=== PATIENT | male | born 1940 | race Caucasian/White ===

== ENCOUNTER → 2016-10-14 | Outpatient (CLI) | payer MEDICARE, OTHER ==
--- NOTE | 2016-10-17 07:50 | CT ---
EXAM DESCRIPTION: Chest w/Contrast CLINICAL HISTORY: PULMONARY NODULE F/U COMPARISON: April 04, 2016 TECHNIQUE: Postcontrast CT images of the chest are obtained. This exam was performed according to our departmental dose-optimization program, which includes automated exposure control, adjustment of the mA and/or kV according to patient size and/or use of iterative reconstruction technique . FINDINGS: Heart and great vessels show mild calcific atherosclerotic disease. No pathologically enlarged mediastinal, hilar, or axillary lymphadenopathy is seen. No significant pleural or pericardial effusion is seen. Visualized upper abdomen shows multiple low-attenuation lesions in the liver that are too small to adequately characterize, but likely represent cysts. These are stable from previous. Calcifications in the gallbladder again suggest cholelithiasis versus gallbladder wall calcifications. Partly visualized solid lesion of the posterior mid pole left kidney measures 1.6 x 2.5 cm relatively stable from previous exam with fat stranding extending to the posterior abdominal wall suggesting possible previous ablation therapy. Correlate clinically. Lungs are mildly hyperinflated. Mild centrilobular emphysematous changes are seen. The subtle less than 3 mm noncalcified nodule in the right middle lobe on image 40-41 is stable to less prominent than previous exam. The more pleural-based 3 mm noncalcified pulmonary nodule in the right middle lobe on image 41 days stable. There is a new area of interstitial thickening in the periphery of the right lung base. Osseous structures show no aggressive bony lesions. Moderate bridging marginal endplate osteophytes over multiple level suggesting diffuse idiopathic skeletal hyperostosis. IMPRESSION: Relatively stable appearance to tiny noncalcified pulmonary nodules in the right middle lobe. Follow-up imaging in one year to document long-term stability is recommended. Interstitial thickening in the right lung base could represent atelectasis versus scarring. Partly visualized left renal lesion. This could represent posttherapeutic changes from ablation therapy of solid renal mass. Correlate with patient history. Cholelithiasis Electronically signed by: August Stinson MD 10/17/2016 7:50 AM CDT
== END | disposition home or self-care (01) ==
LOC: CT 08:41
PROVIDERS: ATTEND Family Medicine
DX: R91.1 Solitary pulmonary nodule (principal)

== ENCOUNTER 2016-11-24 05:52 | Day surgery (SDC) | payer MEDICARE, OTHER ==
[2016-11-24] MEDS ORDERED: LACTATED RINGERS 1,000 ML ONE (06:10)
[2016-11-24] MEDS ORDERED: PROPOFOL 200 MG/20 ML VIAL IV ONE (07:00)
[2016-11-24] MEDS ORDERED: MIDAZOLAM INJ 5 MG/5 ML VIAL ONE (07:00)
[2016-11-24] MEDS ORDERED: LIDOCAINE 1% 10 ML VIAL INJ ONE (07:00)
[2016-11-24] MEDS ORDERED: fentaNYL CITRATE INJ 50 MCG/ML AMP ONE (07:00)
[2016-11-24 08:17] VITALS: BP 119/60; TEMP 97.2; O2SAT 96
--- NOTE | 2016-11-24 08:42 | OP ---
DATE OF PROCEDURE: 11/24/16 PREOPERATIVE DIAGNOSIS: 1. History of rectal cancer in 2016, status post transrectal resection of colon cancer. 2. History of diverticulosis. POSTOPERATIVE DIAGNOSIS: 1. Small lesion at the anastomosis in the rectum. 2. A few small scattered diverticula noted in the sigmoid colon. 3. Normal cecum, ascending colon, transverse colon, and descending colon. PROCEDURE: 1. Colonoscopy with biopsy of the lesion at the rectal anastomosis. SURGEON: Douglas Hansen MD. ANESTHESIA: MAC by Timmy Pete CRNA. ESTIMATED BLOOD LOSS: Less than 2 mL. COMPLICATIONS: None apparent. TECHNIQUE: After signed consent was obtained from the patient, the patient was taken to the Endoscopy Suite and put in the left lateral decubitus position. After adequate IV sedation was obtained, a digital rectal exam was performed which revealed decreased sphincter tone and no intraluminal masses. The prostate was not palpable (status post TURP). The colonoscope was then passed with good visualization all the way through the colon. The bowel prep was excellent. The cecum was identified by the presence of ileocecal valve and usual landmarks. The scope was then withdrawn slowly over the next 10 minutes and a good look at the entire colonic mucosa was obtained. The anastomosis line was identified very, very low in the rectum. There was a small, scabbed lesion on the suture line. There was some attached mucus to it. The mucus was irrigated off and the lesion was then bleeding very slowly. The lesion was biopsied with cold biopsy forceps and there was about 1 mL of blood loss which quickly stopped. The specimen was retrieved and sent for pathology. The scope was removed. The patient was transported to the outpatient area in good condition. I will have him followup with me in two weeks for path report. #[id number] [facility]
== END 2016-11-24 08:35 | disposition home or self-care (01) ==
LOC: AMB 05:52
PROVIDERS: ATTEND Family Medicine
DX: Z12.11 Encounter for screening for malignant neoplasm of colon (principal); K57.30 Diverticulosis of large intestine without perforation or abscess without bleeding; K62.9 Disease of anus and rectum, unspecified; N40.0 Benign prostatic hyperplasia without lower urinary tract symptoms; Z85.048 Personal history of other malignant neoplasm of rectum, rectosigmoid junction, and anus; Z79.899 Other long term (current) drug therapy
CPT/HCPCS: 00810; 45380; 88305; J2250; J3010; J3490; J7120

== ENCOUNTER 2017-01-18 09:54 | Inpatient (IN) | payer MEDICARE, OTHER ==
[~2017-01-18 09:54] MED LIST: DEXAMETHASONE INJ 10 MG/ML VIAL ONE; GLYCOPYRROLATE 0.2 MG/ML VIAL ONE; LIDOCAINE 1% 10 ML VIAL INJ ONE; PROPOFOL 200 MG/20 ML VIAL IV ONE; ePHEDrine SULF 50 MG/ML ONE; raNITIdine HCL INJ 25 MG/ML VIAL ONE
--- NOTE | 2017-01-18 10:26 | ED.PDOC ---
History of Present Illness - General Chief Complaint: Abdominal Pain Stated Complaint: abdominal pain Time Seen by Provider: 01/18/17 10:26 Information Source: patient Exam Limitations: no limitations - History of Present Illness Initial Comments: Chan Dawson 76 y/o male stated that he had stabbing abdominal pain at about 0230 hour today intermittent radiating to back and got worse .Had regular bm did not eat breakfast no appetite no dysuria Abdominal Pain Onset Location: generalized abdomen Pain Radiation: back Quality: moderate, intermittent, stabbing Timing/Duration: 7-24 hours Improving Factors: nothing Worsening Factors: nothing Associated Symptoms: other - see hpi Review of Systems - Review of Systems Constitutional: States: no symptoms reported EENTM: States: no symptoms reported Respiratory: States: no symptoms reported Cardiology: States: no symptoms reported Gastrointestinal/Abdominal: States: see HPI Genitourinary: States: no symptoms reported Musculoskeletal: States: no symptoms reported Skin: States: no symptoms reported Neurological: States: no symptoms reported Past Medical History (General) - Patient Medical History Hx Seizures: No Hx Stroke: No Hx Dementia: No Hx Asthma: No Hx of COPD: No Hx Cardiac Disorders: No Hx Congestive Heart Failure: No Hx Pacemaker: No Hx Hypertension: No Hx Thyroid Disease: No Hx Diabetes: No Hx Gastroesophageal Reflux: No Hx Renal Disease: No Hx Cancer: Yes - colon, kidney Hx of HIV: No Hx MRSA: No Surgical History: appendectomy, other - kidney surgery left ,colon resection - Vaccination History Hx Tetanus, Diphtheria Vaccination: Yes Hx Influenza Vaccination: Yes Hx Pneumococcal Vaccination: Yes - Social History Hx Tobacco Use: No Hx Alcohol Use: No Hx Substance Use: No Hx Substance Use Treatment: No Hx Depression: No Hx Physical Abuse: No Hx Emotional Abuse: No Family Medical History - Family History Mother Family History: Unknown Living Status: Hx Family Cancer: Yes - ovarian Hx Family;Other: ALS-dad Father Family History: Unknown Living Status: Physical Exam - Physical Exam General Appearance: Alert, Comfortable, No apparent distress Eyes, Ears, Nose, Throat Exam: PERRL/EOMI, normal ENT inspection, pharynx normal Neck: non-tender, full range of motion, supple Respiratory: chest non-tender, lungs clear, normal breath sounds Cardiovascular/Chest: normal peripheral pulses, regular rate, rhythm, no murmur Peripheral Pulses: No deficit Gastrointestinal/Abdominal: normal bowel sounds, soft, no organomegaly, tenderness - epigastrium no peritoneal signs Back Exam: normal inspection, no CVA tenderness Extremity: normal range of motion, non-tender Neurologic: no motor/sensory deficits, alert, normal mood/affect, oriented x 3 Progress - Progress Progress: 01/18/17 11:55 Vital Signs - 8 hr 01/18/17 09:54 Temperature 98.0 F Pulse Rate [ 64 pulse ox] Respiratory 16 Rate Blood Pressure 147/85 [Right Arm] O2 Sat by Pulse 98 Oximetry Laboratory Tests 01/18/17 01/18/17 10:35 10:35 WBC 10.7 RBC 4.71 Hgb 14.8 Hct 43.9 MCV 93.2 MCH 31.4 H MCHC 33.7 RDW 13.7 Plt Count 169 MPV 9.5 Absolute Neuts (auto) 10.00 H Absolute Lymphs (auto) 0.40 L Absolute Monos (auto) 0.30 Absolute Eos (auto) 0.00 Absolute Basos (auto) 0.00 Neutrophils % 93.5 H Lymphocytes % 3.6 L Monocytes % 2.8 Eosinophils % 0.0 L Basophils % 0.1 Sodium 141 Potassium 4.4 Chloride 108 Carbon Dioxide 24 Anion Gap 13.4 BUN 18 Creatinine 0.93 BUN/Creatinine Ratio 19.4 Random Glucose 168 H Serum Osmolality 287.0 Calcium 9.4 Total Bilirubin 0.6 AST 20 ALT 16 Alkaline Phosphatase 72 Serum Total Protein 7.3 Albumin 4.6 Globulin 2.7 Albumin/Globulin Ratio 1.7 Lipase 21 L - EKG/XRAY/CT EKG: Sinus, no ST T wave changes Comments: heart rate -62 XRAY: chest - no acute abnormalities Xray Comments: abd.sono-gallbladder wall thickening and pricholecystic fluid sugg of jigar Departure - Departure Clinical Impression: Acute calculous cholecystitis Abdominal pain Qualifiers: Abdominal location: generalized Qualified Code(s): R10.84 - Generalized abdominal pain Time of Disposition: 12:36 Disposition: Admit Patient Condition: Fair Departure Forms: Patient Portal Self Enrollment Instructions: DI for Abdominal Pain-Adult Referrals: Douglas Hansen MD [Primary Care Provider] - 1-2 Weeks Home Medications: Ambulatory Orders NK [NK] 11/11/15 Decision To Admit - Decistion To Admit Decision to Admit Reason: Admit from ER Decision to Admit Date: 01/18/17 - D/W Dr. Staton -surgeon/Marty Simon - ANP/ hospitalist Decision to Admit Time: 12:36
--- NOTE | 2017-01-18 11:04 | RAD ---
Study: Single Frontal View of the Chest. Indication:pain Comparison: None. IMPRESSION: Heart size normal. Lungs clear. Degenerative changes of the spine noted. Electronically signed by: Gaston Tate MD 01/18/2017 11:02 AM CDT
--- NOTE | 2017-01-18 11:35 | US ---
EXAM DESCRIPTION: Abdomen,Complete CLINICAL HISTORY: pain COMPARISON: None available. FINDINGS: Aorta: Nonaneurysmal. IVC: Visualized portions normal. Ascites: None. Pancreas: Partially obscured by overlying bowel gas but visualized portions normal. Liver: No mass, hepatomegaly or biliary duct dilation. Physiologic flow is noted in the main portal vein. Gallbladder/Common Duct: There are several small gallstones in the gallbladder neck measuring up to 7 or 8 mm diameter. Gallbladder sludge is also present. The gallbladder wall is thickened, measuring up to 7 mm diameter, with a small amount of pericholecystic fluid. The common bile duct is not dilated, measuring 5 mm diameter near the nancy hepatis. Right Kidney: No stones, hydronephrosis, atrophy or mass. Spleen: No splenomegaly or mass. Left Kidney: No stones, hydronephrosis, atrophy or mass. The teller coordinator's notes are not available at the time of this dictation and no information concerning absence or presence of a sonographic Crane sign is available. IMPRESSION: Cholelithiasis with gallbladder wall thickening and a tiny amount of pericholecystic fluid suggestive of cholecystitis. No biliary duct dilation. Limited evaluation of the pancreas due to superimposed bowel gas. Electronically signed by: Aris Biswas MD 01/18/2017 11:33 AM CDT Workstation: [id number]
[2017-01-18] MEDS ORDERED: MORPHINE SULFATE INJ 10 MG/ML VIAL IV ONE (11:43)
[2017-01-18] MEDS ORDERED: PROMETHAZINE HCL INJ 25 MG/ML VIAL IM ONE (11:43)
[2017-01-18] MEDS ORDERED: ONDANSETRON INJ 4 MG/2 ML VIAL IV PRN (13:09)
[2017-01-18] MEDS ORDERED: SODIUM CHLORIDE 0.9% (FLUSH) 10 ML SYG IV PRN (13:09)
[2017-01-18] MEDS ORDERED: MORPHINE SULFATE INJ 10 MG/ML VIAL IV PRN (13:09)
[2017-01-18] MEDS ORDERED: levoFLOXacin 500MG IV 500 MG in PREMIX BAG 1 BAG IVPB ONE (13:13)
[2017-01-18] MEDS ORDERED: levoFLOXacin 500MG IV 100 ML IVPB ONE (13:17)
[2017-01-18] MEDS ORDERED: IV SET AND CAP CHANGE INJ INJ SCH (13:30)
--- NOTE | 2017-01-18 13:32 | HP ---
SUPERVISING PHYSICIAN: Douglas Hansen M.D. CHIEF COMPLAINT: Epigastric abdominal pain. HISTORY OF PRESENT ILLNESS: Ms. Dawson is a 76 year-old male patient that presented to the Emergency Department today complaining that he had stabbing abdominal pain that started around 2:30 this morning. It has been intermittent and radiating to the back, and has continued to worsen. He has had some nausea and vomiting. Says he has not had any significant bowel habit changes, but has no appetite. Laboratory studies show that he a normal white count with a left shift. Chemistries were within normal limits with lipase being normal. Urinalysis showed 100 glucose, small amount of blood, otherwise within normal limits. Radiographic studies included an abdominal ultrasound and per radiology interpretation there was note of cholelithiasis with gallbladder wall thickening and tiny amount of pericholecystic fluid suggestive of cholecystitis but no biliary duct dilation. Also of note was limited evaluation of pancreas due to superimposed bowel gas. On admission, the patient was afebrile with blood pressure 147/85, satting 98% on room air. Dr. Lr, E. R. physician, consulted Dr. Staton in the emergency department in regards to the findings for acute cholecystitis. Dr. Staton requested the patient be admitted to the hospitalist service in anticipation of a cholecystectomy. The patient was given morphine and Phenergan in the Emergency Department and admitted to the Medical/Surgical floor in stable condition. PAST MEDICAL HISTORY: 1. Benign prostatic hypertrophy. 2. Osteoarthritis. 3. Colon cancer diagnosed in 2016 with a transrectal resection. PAST SURGICAL HISTORY: 1. Appendectomy. 2. Laparoscopic ablation of left renal mass in 2013. 3. Transrectal resection of colon cancer for a adenocarcinoma. HOME MEDICATIONS: 1. Cialis 5 mg 1 tablet daily for BPH. ALLERGIES: NO KNOWN DRUG ALLERGIES. FAMILY HISTORY: Father from amyotrophic lateral sclerosis. 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 He is retired having served in the [employer]. He is and lives in [place]. He does have a history of smoking for about 15 years of 1 pack a day and quit approximately 42 years ago. He does note he drinks on a rare occasion. He denies any illicit drug use. REVIEW OF SYSTEMS: CONSTITUTIONAL: Denies any fevers, chills or general malaise. HEENT: No headaches, vision changes, nasal congestion. RESPIRATORY: Denies any shortness of breath, exertional dyspnea or cough. CARDIOVASCULAR: Denies any chest pains, palpitations, syncopal or near syncopal episodes. GASTROINTESTINAL: As noted in the history of present illness. GENITOURINARY: Denies any dysuria, hematuria or polyuria. Does have history of benign prostatic hypertrophy currently taking Cialis. NEUROLOGIC: Denies any headaches, syncopal episodes, presyncopal episodes or any other neurological deficits. PHYSICAL EXAMINATION: VITAL SIGNS: Temperature 98.0, pulse 64, blood pressure 147/85, respirations 16 , satting 98% on room air. Admission weight is 75.8 kg. GENERAL: The patient was alert and oriented. Appears to be in no acute distress at time of exam. HEENT: Tympanic membranes are clear bilaterally. Oropharynx is pink and moist without any lesions. NECK: There was no jugular venous distention. Neck was supple, full range of motion, non-tender. CHEST: Lungs were clear to auscultation bilaterally without any rhonchi, wheezing or rales. CARDIOVASCULAR: Regular rate and rhythm without appreciable murmurs, gallops, or rubs. ABDOMEN: Positive bowel sounds. Soft. Tenderness noted over the epigastrium with some mild tenderness on the right upper quadrant on deep palpation. BACK: Atraumatic. Normal inspection with no CVA tenderness. EXTREMITIES: No clubbing, cyanosis or edema. NEUROLOGIC: He was alert and oriented times three. Facial features were symmetrical. Extraocular movements are within normal limits. Cranial nerves II -XII are grossly intact. LABORATORY: CBC showed normal white count at 10.7, hemoglobin 14.8, hematocrit 43.9, platelet count 169,000. Differential did show a left shift. Chemistries showed normal electrolytes with potassium 4.4, BUN 18, creatinine 0.9, glucose 168. Liver functions showed to be within normal limits. Lipase was 21. Urinalysis showed 100 of glucose with small amount of blood, otherwise within normal limits. RADIOLOGY: Abdominal ultrasound per radiology interpretation there was note of cholelithiasis with gallbladder wall thickening and tiny amount of pericholecystic fluid suggestive of cholecystitis but no biliary duct dilation was noted. There was note of limited evaluation of the pancreas due to superimposed bowel gas. Chest x-ray per radiology interpretation single view chest showed normal heart size. Lungs were clear. EKG showed normal sinus rhythm with no ST or T wave changes noted. ASSESSMENT: 1. Acute abdominal pain with noted CT findings suggestive of acute cholecystitis. 2. Benign prostatic hypertrophy on Cialis. 3. History of colon cancer with adenocarcinoma in 2016 with transrectal resection. 4. History of left renal mass removed with a laparoscopic ablation in 2013. 5. Osteoarthritis. PLAN: The patient will be admitted to the hospital for further evaluation and treatment with concerns for developing acute cholecystitis with consultation with Dr. Staton and anticipation of possibly needing a cholecystectomy. He will be continued to have preoperative workup completed. He will be NPO and started on Levaquin IV every 24 hours. He will be provided pain management with morphine and antiemetics with Phenergan and Zofran as needed. He was given Phenergan in the Emergency Department to include 50 mg IM as well as 10 mg of morphine. Will anticipate length of stay to be 2 to 3 days pending findings on consultation with Dr. Staton. Until then, will continue to monitor the patient and treat appropriately. #[id number] [facility]
--- NOTE | 2017-01-18 18:11 | CONS ---
DATE OF CONSULTATION: 01/18/17 REFERRING PHYSICIAN: Hospitalist Service SUPERVISING PHYSICIAN: Douglas Hansen M.D. HISTORY OF PRESENT ILLNESS: The patient is a 76 year-old male that presented to the Emergency Room with severe right upper quadrant pain that eventually radiated to his back. He has had previous episodes of like illness but not as bad. He has had nausea and some vomiting. He has had no change in his bowel habits. Denies blood per rectum or melenic stools. He has no history of hepatitis or jaundice. He is, after medication, much more comfortable when he is examined by me. PAST MEDICAL HISTORY: 1. Benign prostatic hypertrophy. 2. Osteoarthritis. PAST SURGICAL HISTORY: 1. Status post transanal excision of a carcinoma of the colon. 2. Status post ablation of left renal mass. 3. Status post appendectomy. CURRENT MEDICATIONS: 1. Cialis. ALLERGIES: NO KNOWN DRUG ALLERGIES. FAMILY HISTORY: Positive for amyotrophic lateral sclerosis. SOCIAL HISTORY: The patient is . He lives here in [place]. He is a retired senior agricultural assistant spraying agriculture. He also served in the [employer]. He smoked and quit approximately 40 years ago. He drinks rarely. There is no history of drug use. REVIEW OF SYSTEMS: Unremarkable but he denies shortness of breath, chest pain, productive cough. Denies dysuria, hematuria or polyuria. Denies headaches, change in neurologic symptoms. PHYSICAL EXAMINATION: VITAL SIGNS: Currently afebrile and normotensive. GENERAL: The patient is awake, alert and cooperative. He is in mild distress. HEENT: Reveals the sclera to be nonicteric. Mucous membranes are moist. NECK: Without adenopathy. BACK: Without CVA tenderness. CHEST: Reveals equal breath sounds bilaterally. HEART: Regular rate and rhythm. Heart sounds are somewhat deep or distant. ABDOMEN: Soft. There is right upper quadrant and epigastric tenderness without mass or guarding. RECTAL: Examination is deferred. EXTREMITIES: Without clubbing, cyanosis or edema. LABORATORY: Reveals a normal EKG. White count 10,000, hemoglobin 14, platelet count 169,000. There was a slight left shift. Electrolytes show potassium 4.4 , creatinine 0.9. Liver functions are within normal limits. Lipase 21. Urinalysis showed a small amount of sugar and blood. Chest x-ray is noted to be clear. Ultrasound reveals cholelithiasis with wall thickening, pericholecystic fluid and normal ducts. IMPRESSION: 1. Acute abdominal pain consistent with symptomatic cholelithiasis and biliary colic. 2. History of benign prostatic hypertrophy. 3. History of rectal cancer. 4. History of renal lesion. 5. Osteoarthritis. PLAN: After the risks, benefits, and alternatives to laparoscopic cholecystectomy were discussed with the patient in the presence of his , he wishes to proceed with cholecystectomy in the morning and this will be scheduled. We will continue him on his Levaquin. He will be NPO at midnight and have the routine Hibiclens shower, etc. #[id number] [facility]
[2017-01-18] MEDS: SODIUM CHLORIDE 0.9% (FLUSH) 10 ML SYG IV SCH (20:42)
[2017-01-18] MEDS ORDERED: CHLORHEXIDINE GLUCONATE 4 % 15 ML UD TOP ONE (21:59)
[2017-01-19] MEDS: SODIUM CHLORIDE 0.9% (FLUSH) 10 ML SYG IV SCH ×2 (07:44→21:13)
[2017-01-19] MEDS ORDERED: HEPARIN SODIUM (PORCINE) 10,000 UNITS/ML VIAL ONE (08:17)
[2017-01-19] MEDS ORDERED: BUPIVACAINE 0.25% W/EPI 50 ML VIAL INJ ONE (08:17)
[2017-01-19] MEDS ORDERED: fentaNYL CITRATE INJ 50 MCG/ML AMP ONE (08:36)
[2017-01-19] MEDS ORDERED: ROCURONIUM BROMIDE 10 MG/ML VIAL ONE (08:36)
[2017-01-19] MEDS ORDERED: SUGAMMADEX SODIUM 200 MG/2 ML VIAL IV ONE (08:36)
[2017-01-19] MEDS ORDERED: ELECTROLYTE-A 1,000 ML IVS ONE ×2 (08:45→10:06)
[2017-01-19] MEDS ORDERED: HYDROmorphone HCL INJ 2 MG/ML VIAL ONE (09:36)
[2017-01-19] MEDS ORDERED: GLUCAGON INJ 1 MG VIAL ONE (09:47)
[2017-01-19] MEDS ORDERED: ONDANSETRON INJ 4 MG/2 ML VIAL IV PRN (10:36)
[2017-01-19] MEDS ORDERED: HYDROcodone 5MG/APAP 325MG 1 EA TAB PO PRN (10:36)
[2017-01-19] MEDS ORDERED: HYDROmorphone HCL INJ 2 MG/ML VIAL IV PRN (10:36)
[2017-01-19] MEDS ORDERED: levoFLOXacin 500MG IV 500 MG in PREMIX BAG 1 BAG IVPB SCH (11:00)
[2017-01-19] MEDS ORDERED: PANTOPRAZOLE SODIUM IV 40 MG VIAL IV SCH (11:00)
--- NOTE | 2017-01-19 11:06 | OP ---
DATE OF PROCEDURE: 01/19/17 PREOPERATIVE DIAGNOSIS: 1. Symptomatic cholelithiasis. 2. Biliary colic. POSTOPERATIVE DIAGNOSIS: 1. Symptomatic cholelithiasis. 2. Biliary colic. 3. Subacute cholecystitis. 4. Cholesterolosis. 5. Nonobstructing choledocholithiasis PROCEDURE: 1. Laparoscopic cholecystectomy with intraoperative cholangiography using fluoroscopy. SURGEON: Arley Staton MD. SECURITY DIRECTOR: None. ANESTHESIA: Local infiltration of 0.25% Marcaine with epinephrine and general endotracheal anesthesia. INDICATION: The patient is a 76-year-old male who presented with at least his second episode of right upper quadrant pain with radiation to the back, probably associated with fatty meals. He was noted to have normal liver function tests. The patient was brought to the Surgical Suite today for cholecystectomy with cholangiography after the risks, benefits and alternatives to the procedure were discussed and accepted. FINDINGS: The patient was noted to have an edematous, thickened gallbladder wall with multiple adhesions from the omentum. The patient had a very small cystic duct. Intraoperative cholangiography revealed a single stone in the distal common bile duct which intermittently allowed flow of contrast and drainage of the bile duct into the duodenum. There were no strictures identified. It was a long cystic duct. DESCRIPTION OF PROCEDURE: After adequate general endotracheal anesthesia was obtained, the patient was prepped and draped in the usual sterile manner. Surgical time-out was taken. An infraumbilical incision was made, first with infiltration with anesthesia, then with a sharp knife. Dissection was carried down through the skin and subcutaneous tissue to the midline fascia. Traction sutures were placed on either side of the midline. A small incision was made in the midline fascia and the peritoneum was opened bluntly. Hermelindo trocar was introduced under direct vision into the abdominal cavity and fixed in place with 20 mL balloon. CO2 was then insufflated until a pressure of 12 mmHg was reached and the abdomen was tympanitic in all four quadrants. When this was done, the laparoscope was introduced. The abdomen was inspected with the previously noted findings. The patient was then placed in reverse Trendelenburg position, turned to the left side. The upper abdominal ports were placed under direct vision. The gallbladder was grasped and elevated and adhesions to the gallbladder were taken down using blunt dissection and electrocautery. When the neck of the gallbladder was identified, it was retracted laterally. The triangle of Calot was then explored without difficulty. The cystic duct and cystic artery identified. The cystic duct was hemoclipped once proximally. The cystic artery was hemoclipped twice proximally and once distally. A small incision was made in the cystic duct. The cholangiogram catheter was introduced through a separate stab wound in the right upper quadrant, introduced into the cystic duct and clipped in place. Cholangiograms were then taken which showed initially no flow into the duodenum , then with a good flow, but with a distal stone. After attempting to flush this with saline and noting it was still in the lower duct, 1 mg of Glucagon was given. Again, a cholangiogram was taken which again showed the stone in the distal duct although it was not impacted at that time. Again, it was attempted to flush with both saline and contrast, but it continued to be in the distal common bile duct with contrast in the duodenum, so at this point, the cystic duct catheter was removed. The cystic duct was hemoclipped three times distally and divided between the hemoclips. The cystic artery was divided. The gallbladder was then dissected free from the gallbladder bed of the liver without difficulty. It was removed from the infraumbilical port site in the usual manner under direct vision. When this was done, the subhepatic space and subphrenic space were irrigated copiously with saline. The effluent was noted to be clear. There was a small amount of bleeding from the gallbladder bed of the liver. The nancy hepatis was inspected and no bleeding or bile leak was identified. The upper abdominal ports were removed and adequate hemostasis was noted. At this point, the CO2, the laparoscope and the infraumbilical port were removed. The infraumbilical port site fascia was approximated with a single [id number] suture of 0 Vicryl. Subcutaneous tissue was irrigated with saline. Skin edges were approximated with 4-0 Vicryl subcuticular sutures, benzoin and Steri-Strips. Sterile dressings were applied. The patient was awakened and taken to the Recovery Room in good and stable condition. Estimated blood loss was approximately 25 mL. All sponge, needle and instrument counts were correct. As per our routine, I will contact gastroenterology about plans for ERCP versus MRCP versus watchful waiting. #[id number] [facility]ITAL[facility]ath[facility]
[2017-01-19] MEDS ORDERED: levoFLOXacin 500MG IV 100 ML IVPB ONE (11:38)
[2017-01-19] MEDS: LACTATED RINGERS 1,000 ML IVS PRN ×2 (12:45→21:31)
--- NOTE | 2017-01-19 15:13 | PN ---
SUPERVISING PHYSICIAN: Douglas Hansen MD DATE: 01/19/17 SUBJECTIVE: The patient just returned from surgery post laparoscopic cholecystectomy performed by Dr. Staton. The patient is alert, comfortable and appears to be in no acute distress. OBJECTIVE: VITAL SIGNS: Temperature 97.2. Pulse 75. Blood pressure 122/74. Respirations 15. Saturation 98% on room air. I&Os show negative balance of 400 with 250 in, 650 out. Weight 74.8 kg. CHEST: Lungs clear to auscultation bilaterally. HEART: Regular rate and rhythm. ABDOMEN: Soft, mildly tender to fresh incisional sites for laparoscopic procedures. Bowel sounds hypoactive. EXTREMITIES: No cyanosis, clubbing or edema. NEUROLOGIC: Alert and oriented times three. LABORATORY: CBC this morning showed white count 8.3, hemoglobin 14.3, hematocrit 42.4, platelet count 146,000, differential without left shift. Chemistries show normal electrolytes with potassium 3.9, BUN 20, creatinine 0.98 , glucose 107. Liver function within normal limits. Amylase and lipase within normal limits. ASSESSMENT: 1. Acute abdominal pain with symptomatic cholelithiasis and biliary colic, postoperative day 0 for laparoscopic cholecystectomy. 2. Subacute cholecystitis with nonobstructing choledocholithiasis. 3. Benign prostatic hypertrophy on Cialis. 4. History of colon cancer with adenocarcinoma in 2016 with transrectal resection. 5. History of left renal mass removed with a laparoscopic ablation in 2013. 6. Osteoarthritis. PLAN: We will continue to follow the patient as he continues to recover from surgery. We will monitor the patient closely along with Dr. Staton. Dr. Staton is in contact with gastrointestinal associates in [place] in regards to plan of care for either ERCP versus MRCP versus watchful waiting. We will await Dr. Staton's decision as to his further treatment and anticipate discharge at Dr. Staton 's discretion. Until then, we will continue to monitor the patient closely and treat appropriately. #[id number] [facility]
[2017-01-20] MEDS ORDERED: PANTOPRAZOLE SODIUM IV 40 MG VIAL ONE (02:39)
[2017-01-20] MEDS: LACTATED RINGERS 1,000 ML IVS PRN (05:21)
[2017-01-20] MEDS ORDERED: PANTOPRAZOLE SODIUM IV 40 MG VIAL IV SCH (06:30)
[2017-01-20 07:30] VITALS: BP 158/78; TEMP 98.2
[2017-01-20 09:34] VITALS: O2SAT 94
--- NOTE | 2017-01-24 10:12 | DS ---
SUPERVISING PHYSICIAN: Douglas Hansen MD DISCHARGE DIAGNOSIS: 1. Acute abdominal pain with symptomatic cholelithiasis and biliary colic, postoperative day 1 for laparoscopic cholecystectomy. 2. Subacute cholecystitis with nonobstructing choledocholithiasis. 3. Benign prostatic hypertrophy on Cialis. 4. History of colon cancer with adenocarcinoma in 2016 with transrectal resection. 5. History of left renal mass removed with a laparoscopic ablation in 2013. 6. Osteoarthritis. HISTORY OF PRESENT ILLNESS: Mr. Dawson is a 76-year-old male patient that presented to the Emergency Department complaining that he had stabbing abdominal pain that started around 2:30 on the morning of admission. It has been intermittent and radiating to the back, and has continued to worsen. He has had some nausea and vomiting. He noted he had not had any significant bowel habit changes, but had no appetite. Laboratory studies show that he a normal white count with a left shift. Chemistries were within normal limits with lipase being normal. Urinalysis showed 100 glucose, small amount of blood , otherwise within normal limits. Radiographic studies included an abdominal ultrasound and per radiologic interpretation there was note of cholelithiasis with gallbladder wall thickening and tiny amount of pericholecystic fluid suggestive of cholecystitis, but no biliary duct dilation. Also of note was limited evaluation of pancreas due to superimposed bowel gas. On admission, the patient was afebrile with blood pressure 147/85, satting 98% on room air. Dr. Lr, ER physician, consulted Dr. Staton in the emergency department in regards to the findings for acute cholecystitis. Dr. Staton, general surgery, requested the patient be admitted to the hospitalist service in anticipation of a cholecystectomy. The patient was given morphine and Phenergan in the Emergency Department and admitted to the Medical/Surgical floor in stable condition. LABORATORY: White count on admission was 10.7 and at discharge 11.6 on postoperative day 1. Hemoglobin and hematocrit at discharge were 13 and 38.9. Platelet count 146,000. Differential did continue to show a left shift. Chemistries on admission showed normal electrolytes, normal liver function, normal lipase. At discharge, chemistries were unchanged with potassium 4.1. Liver functions were still within normal limits. BUN 19, creatinine 0.97. Urinalysis showed a 100 glucose, small amount of blood, otherwise within normal limits. RADIOLOGY: Chest x-ray in the Emergency Department per radiologic interpretation showed heart size normal, lungs clear. Noted degenerative changes within the spine. He also had an abdominal ultrasound and per radiologic interpretation showed cholelithiasis within the gallbladder, wall thickening and tiny amount of pericholecystic fluid suggestive of cholecystitis , but no biliary duct dilation. CONSULTATION: General surgery, Dr. Staton. See his notes for details. PROCEDURES: Laparoscopic cholecystectomy performed by Dr. Staton. Please see his operative report for full details. HOSPITAL COURSE: Mr. Dawson was admitted from the Emergency Department as noted for acute cholecystitis. He had a laparoscopic cholecystectomy performed by Dr. Staton. Per his operative notes, there was note of choledocholithiasis. The patient recovered from surgery without any complications and arrangements were made for an ERCP to be performed by Dr. Ayala at [facility] on the day after surgery. The patient was to be transferred by ambulance to [facility]. The patient's laboratories remained stable. He remained in good control of his pain. He remained NPO post surgery. PLAN: The patient was discharged to be transferred to [facility] for an ERCP to be performed by Dr. Ayala. The patient was to be NPO during transfer. MAR was sent with him in regards to medications. He was to have close clinical followup with Dr. Staton after he was discharged from [facility]. Dr. Santos was the receiving hospitalist. The patient was transferred and discharged in stable condition. #[id number] [facility]
== END 2017-01-20 09:21 | disposition short-term general hospital (02) | DRG 419 ==
LOC: ER 09:54 → MS 13:30 → OBSVTOIN 13:30
PROVIDERS: ADMIT Nurse Practitioner Family; ATTEND Nurse Practitioner Family
PROC: BF13YZZ Fluoroscopy of Gallbladder and Bile Ducts using Other Contrast (ICD-10-PCS; 2017-01-19)
PROC: 0FT44ZZ Resection of Gallbladder, Percutaneous Endoscopic Approach (ICD-10-PCS; principal; 2017-01-19 08:43)
DX: K80.60 Calculus of gallbladder and bile duct with cholecystitis, unspecified, without obstruction (principal); N40.0 Benign prostatic hyperplasia without lower urinary tract symptoms; M19.90 Unspecified osteoarthritis, unspecified site; Z79.899 Other long term (current) drug therapy; Z85.038 Personal history of other malignant neoplasm of large intestine; Z90.49 Acquired absence of other specified parts of digestive tract; Z87.891 Personal history of nicotine dependence

== ENCOUNTER → 2017-06-14 | Outpatient (CLI) | payer MEDICARE, OTHER | END | disposition home or self-care (01) | LOC: LAB.O 11:33 | DX: Z12.5 Encounter for screening for malignant neoplasm of prostate (principal) ==

== ENCOUNTER 2017-12-07 05:57 | Day surgery (SDC) | payer MEDICARE, OTHER ==
[2017-12-07] MEDS ORDERED: LACTATED RINGERS 1,000 ML ONE (06:44)
[2017-12-07] MEDS ORDERED: LIDOCAINE 1% 10 ML VIAL INJ ONE (07:00)
[2017-12-07] MEDS ORDERED: PROPOFOL 200 MG/20 ML VIAL IV ONE (07:00)
[2017-12-07] MEDS ORDERED: fentaNYL CITRATE INJ 50 MCG/ML AMP ONE (07:22)
--- NOTE | 2017-12-07 08:07 | OP ---
DATE OF PROCEDURE: 12/07/17 PREOPERATIVE DIAGNOSIS: 1. History of colon cancer. 2. History of left hemicolectomy. POSTOPERATIVE DIAGNOSIS: 1. PROCEDURE: 1. Colonoscopy. SURGEON: Douglas Hansen MD. ANESTHESIA: MAC by Timmy Pete CRNA. ESTIMATED BLOOD LOSS: None. COMPLICATIONS: None apparent. TECHNIQUE: After informed consent was obtained from the patient, the patient was taken to the Endoscopy Suite and put in the left lateral decubitus position. After adequate IV sedation was obtained, a digital rectal exam was performed. The patient had some external hemorrhoids, decreased sphincter tone and no intraluminal masses. The prostate was smooth and normal sized. The colonoscope was advanced through the colon very easily. It did not take long since he has only a very short segment of sigmoid colon. The cecum was identified by the presence of ileocecal valve. Picture was taken. The scope was then withdrawn slowly over the next 8 minutes and a good look at the entire colon was obtained. The anastomosis site looked very healthy. I did not see anything abnormal at all. There were no biopsies taken. The scope was removed. The patient tolerated the procedure well. The patient was transported to the outpatient area in good condition. He will followup with me on a p.r.n. basis. I recommended another colonoscopy in one year due to his history of colon cancer two years ago. #[id number] [facility]
[2017-12-07 08:35] VITALS: O2SAT 98
[2017-12-07 08:36] VITALS: BP 136/71; TEMP 97
== END 2017-12-07 08:20 | disposition home or self-care (01) ==
LOC: AMB 05:57
PROVIDERS: ATTEND Family Medicine
DX: Z08 Encounter for follow-up examination after completed treatment for malignant neoplasm (principal); Z85.038 Personal history of other malignant neoplasm of large intestine; N40.0 Benign prostatic hyperplasia without lower urinary tract symptoms; M19.90 Unspecified osteoarthritis, unspecified site; J45.909 Unspecified asthma, uncomplicated; R91.8 Other nonspecific abnormal finding of lung field; M06.9 Rheumatoid arthritis, unspecified; F17.220 Nicotine dependence, chewing tobacco, uncomplicated; Z90.49 Acquired absence of other specified parts of digestive tract
CPT/HCPCS: 00811; 45378; J3010; J3490; J7120

== ENCOUNTER 2017-12-29 14:54 | Emergency (ER) | payer MEDICARE, OTHER ==
[2017-12-29] MEDS ORDERED: POVIDONE IODINE 10 % 15 ML UD TOP ONE ×2 (15:38→15:48)
[2017-12-29] MEDS ORDERED: TETANUS,DIPHTHERIA,PERTUSSIS 1 EA SYG IM ONE (15:58)
--- NOTE | 2017-12-29 16:01 | ED.PDOC ---
History of Present Illness - General Chief Complaint: Laceration Stated Complaint: laceration Time Seen by Provider: 12/29/17 15:58 Source: RN notes reviewed - History of Present Illness Initial Comments: patient comes in with laceration to his left thumb. Patient was using a cast shell grinder when his thumb nail got caught and pulled off a portion of the pad on his finger. He otherwise is healthy and has no past medical history. He has no allergies. He does not smoke, drink, or take illicit substances. Timing/Duration: just prior to arrival Severity: moderate Location: hands Improving Factors: nothing Worsening Factors: nothing Associated Symptoms: denies symptoms Allergies/Adverse Reactions: Allergies NO KNOWN ALLERGY Allergy (Verified 01/18/17 10:11) Home Medications: Ambulatory Orders NK [NK] 11/11/15 Review of Systems - Review of Systems Constitutional: States: no symptoms reported. Denies: chills, diaphoresis, fever, weakness EENTM: States: no symptoms reported. Denies: eye pain, ear pain, throat pain Respiratory: States: no symptoms reported Cardiology: States: no symptoms reported Gastrointestinal/Abdominal: States: no symptoms reported Genitourinary: States: no symptoms reported Past Medical History (General) - Patient Medical History Hx Seizures: No Hx Stroke: No Hx Dementia: No Hx Asthma: No Hx of COPD: No Hx Cardiac Disorders: No Hx Congestive Heart Failure: No Hx Pacemaker: No Hx Hypertension: No Hx Thyroid Disease: No Hx Diabetes: - N/A Hx Gastroesophageal Reflux: No Hx Renal Disease: No Hx Cancer: Yes - colon, kidney Hx of HIV: No Hx MRSA: No - Vaccination History Hx Tetanus, Diphtheria Vaccination: Yes Hx Influenza Vaccination: Yes Hx Pneumococcal Vaccination: Yes - Social History Hx Tobacco Use: No Hx Alcohol Use: No Hx Substance Use: No Hx Substance Use Treatment: No Hx Depression: No Hx Physical Abuse: No Hx Emotional Abuse: No Family Medical History - Family History Mother Family History: Unknown Living Status: Hx Family Cancer: Yes - ovarian Hx Family;Other: ALS-dad Father Family History: Unknown Living Status: Physical Exam - Physical Exam General Appearance: No apparent distress Eyes, Ears, Nose, Throat Exam: PERRL/EOMI Cardiovascular/Chest: normal peripheral pulses, regular rate, rhythm, no edema, no murmur Respiratory: chest non-tender, lungs clear, normal breath sounds Gastrointestinal/Abdominal: normal bowel sounds Extremity: other - 1.5 cm laceration through subcutaneous tissue L thumb pad Neurologic: no motor/sensory deficits, alert Progress - Progress Progress: 12/29/17 16:00 area was cleaned with iodine for digital block. 4 cc of 1% lidocaine was injected on either side for digital block with good anesthesia. After adequate anesthesia was assured area was open and subcutaneous tissue is involved but no bony or tendon involvement. Area was scrubbed and reapproximated with 3-0 Ethilon 3. Patient tolerated procedure well Procedures - Laceration/Wound Repair Left Finger Wound Length (cm): 1.5 Wound's Depth, Shape: superficial Wound Explored: clean Irrigated w/ Saline (cc's): 5 Betadine Prep?: Yes Anesthesia: 1% Lidocaine Volume Anesthetic (cc's): 4 - digital block Wound Debrided: moderate Wound Repaired With: sutures Suture Size/Type: 3:0, vicryl rapide Number of Sutures: 3 Layer Closure?: No Departure - Departure Clinical Impression: Laceration Disposition: Discharge to Home or Self Care Condition: Good Departure Forms: ED Discharge - Pt. Copy, Patient Portal Self Enrollment Instructions: DI for Laceration Repair, DI for Laceration Repair -- Simple Diet: regular diet Activity: increase activity as tolerated Referrals: Douglas Hansen MD [Primary Care Provider] - 1-2 Weeks Home Medications: Ambulatory Orders NK [NK] 11/11/15 Additional Instructions: keep area clean and wash with warm soapy water twice a day and pat dry. Do not soak sutures. Return to ER/call M.D. for swelling, redness, or purulence. Follow up in clinic in 7-10 days for removal of sutures.
[2017-12-30 07:42] VITALS: BP 146/84; O2SAT 99
[2018-01-01 17:47] VITALS: TEMP 97
== END 2017-12-29 16:39 | disposition home or self-care (01) ==
LOC: ER 14:54
DX: S61.012A Laceration without foreign body of left thumb without damage to nail, initial encounter (principal); Z85.038 Personal history of other malignant neoplasm of large intestine; Z85.528 Personal history of other malignant neoplasm of kidney; Y93.89 Activity, other specified; W31.89XA Contact with other specified machinery, initial encounter; Y92.009 Unspecified place in unspecified non-institutional (private) residence as the place of occurrence of the external cause

== ENCOUNTER → 2018-05-14 | Outpatient (CLI) | payer MEDICARE, OTHER | LOC: GMAJ 14:46 | PROVIDERS: ATTEND Family Medicine | DX: N40.1 Benign prostatic hyperplasia with lower urinary tract symptoms (principal) ==

== ENCOUNTER → 2018-12-29 | Outpatient (CLI) | payer MEDICARE, OTHER ==
--- NOTE | 2018-12-29 09:44 | RAD ---
EXAM: XR Pelvis Complete, 3 or More Views CLINICAL HISTORY: 78 years old and is Male; HIP PAIN TECHNIQUE: Frontal and lateral or oblique views of the pelvis. COMPARISON: No relevant prior studies available. FINDINGS: Limitations: None. Bones/joints: There are degenerative changes in the visualized lumbar segments. There is mild symmetrical narrowing of the acetabular joints. No acute fracture. No dislocation. Soft tissues: Unremarkable. IMPRESSION: Chronic changes as above. No acute disease. Electronically signed by: Tere Wooten MD 12/29/2018 9:42 AM CDT
--- NOTE | 2018-12-29 09:44 | RAD ---
EXAM: XR Left Hip With Pelvis When Performed, 2 or 3 Views CLINICAL HISTORY: 78 years old and is Male; HIP PAIN TECHNIQUE: Two or three views of the left hip, with pelvis when performed. COMPARISON: No relevant prior studies available. FINDINGS: Limitations: None. Bones/joints: Unremarkable. No acute fracture. No dislocation. Soft tissues: Unremarkable. IMPRESSION: No acute findings. Electronically signed by: Tere Wooten MD 12/29/2018 9:42 AM CDT
== END ==
LOC: RAD 09:22
PROVIDERS: ATTEND Nurse Practitioner Family
DX: M47.896 Other spondylosis, lumbar region (principal); M25.851 Other specified joint disorders, right hip; M25.852 Other specified joint disorders, left hip

== ENCOUNTER → 2020-01-13 | Outpatient (CLI) | payer MEDICARE, OTHER ==
--- NOTE | 2020-01-13 14:33 | MRI ---
EXAM DESCRIPTION: Brain w/oContrast: MRI. CLINICAL HISTORY: DIZZINESS COMPARISON: None. TECHNIQUE: Multiplanar, high-field MRI unit, multiple diffusion sequences, multiple conventional sequences without contrast. FINDINGS: Minimal hyperintense focal FLAIR and T2-weighted signal in the bilateral periventricular frontal horn white matter also abutting the anterior right lateral ventricle and in the bilateral prather radiata at the level of the ventricles extending into the bilateral centrum semiovale. Similar signal abutting the bilateral occipital horns of the ventricles. No hemorrhage, no cerebral edema, no midline shift.. Normal signal in the bilateral basal ganglia. Normal signal in the brainstem and cerebellar hemispheres. Magnetic susceptibility artifact is causing distortion of the right orbit and anterior right temporal lobe on the diffusion images and the T2*gradient images. Concordance of the diffusion and non-diffusion sequences with no diffusion restriction. Cortical sulci, ventricles, and other CSF spaces, and the subdural spaces are normally configured for patient's age. No effacement or displacement. No midline shift. No extra-axial hemorrhage. Normal flow signal void in the major vessels of the [place], and the venous sinuses. IACs are symmetric bilaterally. Normal signal in the bilateral mastoid air cells. No mass effect in the bilateral cerebellopontine angles. Pituitary gland occupies most of the sella. Base of the cerebellar tonsils is at the level of the foramen magnum. Minimal mucoperiosteal thickening in the paranasal sinuses. The bony calvarium is intact. IMPRESSION: 1. White matter changes described above are most likely related to cerebral microvascular disease and aging. No intra-axial or extra-axial hemorrhage, no mass effect, and no midline shift. No diffusion restriction/infarction. 2. Magnetic susceptibility artifact in the right nasopharynx or oral cavity distorting the T2*gradient and diffusion images of the nondistorted images show no abnormalities. No evidence of significant ischemia or acute or subacute infarction. 3. Minimal chronic paranasal sinusitis. Electronically signed by: Fazal Donovan MD 01/13/2020 2:32 PM CDT
== END ==
LOC: MRI 09:00
PROVIDERS: ATTEND Family Medicine
DX: R90.82 White matter disease, unspecified (principal); J32.9 Chronic sinusitis, unspecified; M00-M99 Diseases of the musculoskeletal system and connective tissue

== ENCOUNTER → 2020-01-14 | Outpatient (CLI) | payer MEDICARE, OTHER ==
--- NOTE | 2020-01-14 13:06 | MRI ---
EXAM DESCRIPTION: MRA Head and/or Neck CLINICAL HISTORY: 79 years Male, DIZZINESS AND GIDDINESS COMPARISON: MRI brain 01/13/2020 TECHNIQUE: MR angiography of the [place] performed utilizing 3-D iqpd-[id number]-[id number] technique. MR angiography of the cervical carotid and vertebral arteries is performed utilizing 2-D and 3-D [id number] technique. Both source images and 3-D angiographic renderings performed at a separate workstation and reviewed for interpretation. MRA HEAD FINDINGS: Anterior circulation: Both internal carotid arteries are widely patent without stenosis, dissection or aneurysm. Both anterior cerebral arteries and middle cerebral arteries are widely patent without stenosis or aneurysm. Posterior communicating arteries are present. Posterior circulation: There are no vertebral basilar stenoses, dissections or posterior circulation aneurysms. MRA NECK FINDINGS: Cervicocerebral arch: Aortic arch not completely included. RIGHT carotid artery: The RIGHT common carotid artery is widely patent without stenosis or dissection. The internal carotid artery is patent without stenosis or dissection. The external carotid artery is normal. LEFT carotid artery: The LEFT common carotid artery is widely patent without stenosis or dissection. The internal carotid artery is patent without stenosis or dissection. The external carotid artery is normal. Vertebral arteries: The vertebral arteries are widely patent to the vertebrobasilar junction with no stenoses or dissection. IMPRESSION: 1. No acute MRA finding of the head or neck. Electronically signed by: Irwin Mayers MD 01/14/2020 1:05 PM CDT
--- NOTE | 2020-01-14 13:07 | MRI ---
EXAM DESCRIPTION: MRA Head and/or Neck CLINICAL HISTORY: 79 years Male, DIZZINESS AND GIDDINESS COMPARISON: MRI brain 01/13/2020 TECHNIQUE: MR angiography of the [place] performed utilizing 3-D snqi-yf-hpsiss technique. MR angiography of the cervical carotid and vertebral arteries is performed utilizing 2-D and 3-D [id number] technique. Both source images and 3-D angiographic renderings performed at a separate workstation and reviewed for interpretation. MRA HEAD FINDINGS: Anterior circulation: Both internal carotid arteries are widely patent without stenosis, dissection or aneurysm. Both anterior cerebral arteries and middle cerebral arteries are widely patent without stenosis or aneurysm. Posterior communicating arteries are present. Posterior circulation: There are no vertebral basilar stenoses, dissections or posterior circulation aneurysms. MRA NECK FINDINGS: Cervicocerebral arch: Aortic arch not completely included. RIGHT carotid artery: The RIGHT common carotid artery is widely patent without stenosis or dissection. The internal carotid artery is patent without stenosis or dissection. The external carotid artery is normal. LEFT carotid artery: The LEFT common carotid artery is widely patent without stenosis or dissection. The internal carotid artery is patent without stenosis or dissection. The external carotid artery is normal. Vertebral arteries: The vertebral arteries are widely patent to the vertebrobasilar junction with no stenoses or dissection. IMPRESSION: 1. No acute MRA finding of the head or neck. Electronically signed by: Irwin Mayers MD 01/14/2020 1:05 PM CDT
== END ==
LOC: MRI 08:26
PROVIDERS: ATTEND Family Medicine
DX: R42 Dizziness and giddiness (principal); M00-M99 Diseases of the musculoskeletal system and connective tissue